=== PATIENT | male | born 1990 | race Caucasian/White ===

== ENCOUNTER 2025-05-16 08:07 | Emergency (ER) | payer MEDICARE ==
[~2025-05-16] VITALS: Ht 170.2 cm; Wt 60.0 kg
[2025-05-16] MEDS ORDERED: ONDANSETRON 4 MG TAB ODT SL ONE (08:30)
[2025-05-16] MEDS ORDERED: CEPHALEXIN MONOHYDRATE 500 MG CAP PO ONE (09:00)
[2025-05-16] MEDS ORDERED: CEPHALEXIN500 M1 PO (09:02)
[2025-05-16 09:30] VITALS: BP 119/77
== END 2025-05-16 09:31 | disposition home or self-care (01) ==
LOC: ED 08:07
DX: L03.115 Cellulitis of right lower limb (principal); J44.9 Chronic obstructive pulmonary disease, unspecified
CPT/HCPCS: 99284; A9270

== ENCOUNTER 2025-05-25 11:54 | Emergency (ER) | payer MEDICARE ==
[~2025-05-25] VITALS: Ht 170.2 cm; Wt 63.0 kg
[~2025-05-25 11:54] MED LIST: CEPHALEXIN500 M1 PO
--- OUTSIDE RECORDS SUMMARY | 2025-05-25 11:54 | XMS ---
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 Shantell has no Care Guidelines for this patient. Fazal VISIT COUNT (12 MO.) [address] [facility] [place] TOTAL 2 NOTE: Visits indicate total known visits. ED/C VISIT TRACKING (12 MO.) 05/25/2025 11:[address] [facility] [place] TYPE: Emergency COMPLAINT: - MEDICAL CLEARANCE 05/16/2025 08:07 [facility] [place] TYPE: Emergency COMPLAINT: - SKIN PROBLEM DIAGNOSES: - Cellulitis of right lower limb - Chronic obstructive pulmonary disease, unspecified INPATIENT VISIT TRACKING (12 MO.) No inpatient visits to display in this time frame [id number]
[2025-05-25 12:45] VITALS: BP 115/57
== END 2025-05-25 12:45 | disposition home or self-care (01) ==
LOC: ED 11:54
DX: F22 Delusional disorders (principal)
CPT/HCPCS: 99282

== ENCOUNTER 2025-06-25 16:48 | Emergency (ER) | payer MEDICARE ==
[~2025-06-25] VITALS: Ht 170.2 cm; Wt 66.8 kg
[2025-06-25 18:07] VITALS: BP 113/71
== END 2025-06-25 18:08 | disposition home or self-care (01) ==
LOC: ED 16:48
DX: F19.90 Other psychoactive substance use, unspecified, uncomplicated (principal); F12.90 Cannabis use, unspecified, uncomplicated
CPT/HCPCS: 99284

== ENCOUNTER 2025-06-26 01:16 | Emergency (ER) | payer MEDICARE ==
[~2025-06-26] VITALS: Ht 170.2 cm; Wt 62.5 kg
--- OUTSIDE RECORDS SUMMARY | 2025-06-26 01:17 | XMS ---
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 Shantell has no Care Guidelines for this patient. Fazal VISIT COUNT (12 MO.) [address] [facility] [place]. TOTAL 4 NOTE: Visits indicate total known visits. ED/C VISIT TRACKING (12 MO.) 06/26/2025 01:[address] [facility] [place] TYPE: Emergency COMPLAINT: - BODY ACHES 06/25/2025 16:49 [facility] [place] TYPE: Emergency COMPLAINT: - BODY ACHES 05/25/2025 11:54 [facility] [place] TYPE: Emergency COMPLAINT: - MEDICAL CLEARANCE DIAGNOSES: - Delusional disorders 05/16/2025 08:07 [facility] [place] TYPE: Emergency COMPLAINT: - SKIN PROBLEM DIAGNOSES: - Cellulitis of right lower limb - Chronic obstructive pulmonary disease, unspecified INPATIENT VISIT TRACKING (12 MO.) No inpatient visits to display in this time frame [id number]
[2025-06-26 02:30] VITALS: BP 117/83
== END 2025-06-26 02:32 | disposition home or self-care (01) ==
LOC: ED 01:16
DX: R51.9 Headache, unspecified (principal); Z59.02 Unsheltered homelessness
CPT/HCPCS: 99283